=== PATIENT | female | born 1995 | race Caucasian/White ===

== ENCOUNTER → 2016-09-15 | Outpatient (CLI) | payer OTHER ==
[~2016-09-15] MED LIST: IBU400 MG PO; IBU800 M1 PO; ULTRAM 50MG TAB50 MG PO
== END ==
LOC: COL.RAD 07:29
DX: M54.5 Low back pain (principal); M43.06 Spondylolysis, lumbar region
CPT/HCPCS: J3301

== ENCOUNTER → 2016-11-11 | Outpatient (CLI) | payer OTHER | LOC: COL.RAD 12:59 | DX: M25.552 Pain in left hip (principal) | CPT/HCPCS: J3301; Q9967 ==

== ENCOUNTER → 2016-12-06 | Outpatient (CLI) | payer OTHER | LOC: COL.RAD 07:38 | DX: M25.852 Other specified joint disorders, left hip (principal); S73.192A Other sprain of left hip, initial encounter; X58.XXXA Exposure to other specified factors, initial encounter; M25.552 Pain in left hip | CPT/HCPCS: A9585; Q9967 ==

== ENCOUNTER → 2019-07-05 | Outpatient (CLI) | payer OTHER | LOC: COL.RAD 08:41 | DX: G44.52 New daily persistent headache (NDPH) (principal); E34.8 Other specified endocrine disorders | CPT/HCPCS: A9585 ==